=== PATIENT | female | born 1960 | race Caucasian/White ===

== ENCOUNTER 2016-08-15 08:04 | Emergency (ER) | payer BC ==
[2016-08-15 08:22] VITALS: BP 146/87
--- NOTE | 2016-08-15 08:33 | UC ---
Respiratory Complaint HPI - History of Current Complaint Chief Complaint: UCRespiratory Stated Complaint: SINUS COMPLAINT Time Seen by Provider: 08/15/16 08:25 Hx Obtained From: Patient Hx Last Menstrual Period: 1996 ?: No Onset/Duration: Sudden Onset, Lasting Days - 7, Still Present Severity Initially: Moderate Severity Currently: Moderate Character: Cough: Productive Aggravating Factors: Allergens - and smoking Alleviating Factors: Nothing Associated Signs And Symptoms: Positive: Chills, URI, Nasal Congestion, Hoarseness, Sinus Discomfort. Negative: Wheezing Related History: Seasonal Allergies - Risk Factors Pulmonary Embolism Risk Factors: Smoking Cardiac Risk Factors: Smoking Tuberculosis Risk Factors: Negative - Allergies/Home Medications Allergies/Adverse Reactions: Allergies Allergy/AdvReac Type Severity Reaction Status Date / Time Povidone Iodine Allergy Intermediate Rash Verified 08/15/16 08:17 [From Betadine] Morphine AdvReac Mild Nausea Verified 08/15/16 08:17 novacaine Allergy Severe local Uncoded 02/09/15 17:11 reaction seasonal Allergy Eyes Uncoded 03/10/16 20:36 Itchy/Swollen/Red/Watery PMH/Surg Hx/FS Hx/Imm Hx Endocrine History Of: Denies: Diabetes Cardiovascular History Of: Denies: Hypertension, Pacemaker/ICD, Congestive Heart Failure Respiratory History Of: Denies: Asthma GI/ History Of: Denies: Renal Disease Cancer History Of: Reports: Colorectal Cancer - Surgical History Surgical History: Yes Surgery Procedure, Year, and Place: COLON RESECTION REMOVING TUMOR 05/2011 [facility]. ILIOSTOMY 07/2011 [facility]. CYSTOSCOPY SPRING 2013-REMOVAL OF "RADIATION" TUMOR - Family History Known Family History: Positive: Cardiac Disease, Hypertension, Diabetes, Other - COLON CA - Social History Occupation: Employed Full-time Lives: Alone Alcohol Use: Rare Substance Use Type: None Smoking Status (MU): Light Every Day Tobacco Smoker Type: Cigarettes Amount Used/How Often: 4 CIGS PER DAY Length of Time of Smoking/Using Tobacco: ~ 40 Have You Smoked in the Last Year: Yes Household Exposure Type: Cigarettes Cessation Counseling: Patient Advised to Stop Review of Systems Constitutional: Fever, Chills ENT: Sore Throat, Nasal Discharge Respiratory: Cough Neurological: Headache - sinus, All Other Systems Reviewed And Are Negative: Yes Physical Exam Triage Information Reviewed: Yes Appearance: No Pain Distress, Well-Nourished, Ill-Appearing - mild Vital Signs: Initial Vital Signs Temp 98.4 F 08/15/16 08:10 Pulse 75 08/15/16 08:10 Resp 14 08/15/16 08:10 BP 146/87 08/15/16 08:10 Pulse Ox 99 08/15/16 08:10 Vital Signs Reviewed: Yes Eyes: Positive: Conjunctiva Inflamed - mild OU ENT: Positive: Pharyngeal erythema, TMs normal Neck exam: Normal Respiratory: Positive: Lungs clear. Negative: Wheezing Cardiovascular: Positive: RRR. Negative: No Murmur Musculoskeletal Exam: Normal Neurological Exam: Normal Psychological Exam: Normal Skin Exam: Normal UC Diagnostic Evaluation - Laboratory O2 Sat by Pulse Oximetry: 99 Respiratory Course/Dx - Differential Dx/Diagnosis Differential Diagnosis/HQI/PQRI: Asthma, Lower Resp Infection, Sinusitis Provider Diagnoses: Acute URI. Acute sinusitis. Nicotine use, cigarettes. Discharge - Discharge Plan Condition: Stable Disposition: HOME Prescriptions: Sulfamethox/Trimethoprim DS* [Bactrim DS 800/160 TAB*] 1 tab PO BID #20 tab Patient Education Materials: Upper Respiratory Infection (ED), Sinusitis (ED), Sulfamethoxazole/Trimethoprim (By mouth) Additional Instructions: [facility] SINUS RINSE: CHECK OUT AT [facility] Saline nasal wash helps with mucous, allergies and congestion. It can be used up to twice a day or only as needed. Use lukewarm tap water. It does not have to be sterilized or distilled water. Do 1/3 on each side and snort out of both nostrils. Repeat the process with 1/6 of the bottle on each side with snorting in between to finish the solution in the bottle Smoking Cessation Tricks. 1. Cut down by 1 cigarette per day every 2-3 days. Write the number of smokes for that day on the calendar. 2. Identify triggers to smoking: after meals, on the phone, in the car, with coffee, on breaks at work, etc. 3. Formulate a plan with a behavior to replace the smoking. Fireballs in the car , doodle pad on the phone, flavored creamer for the coffee, go for a walk after a meal or on break at work. 4. For stress smokes do deep breathing relaxation. Breath deep in through the nose hold the breath in for a few seconds then breath out slowly through the mouth.
== END 2016-08-15 08:45 | disposition home or self-care (01) ==
LOC: UCCORT 08:04
DX: J06.9 Acute upper respiratory infection, unspecified (principal); J01.90 Acute sinusitis, unspecified; Z85.038 Personal history of other malignant neoplasm of large intestine; Z88.4 Allergy status to anesthetic agent; Z88.5 Allergy status to narcotic agent; F17.210 Nicotine dependence, cigarettes, uncomplicated
CPT/HCPCS: 99212; G0463

== ENCOUNTER 2017-12-23 07:02 | Emergency (ER) | payer BC ==
[2017-12-23 07:25] VITALS: BP 140/70
--- NOTE | 2017-12-23 07:42 | UC ---
Back Pain HPI - HPI Summary HPI Summary: lower back pain x 2 days concern about possible UTI no dysuria , no frequency , no fever, no chills, no flank pain no known injury , pain is worse with movement, better, with rest, - History of Current Complaint Chief Complaint: UCGU Stated Complaint: URINARY COMPLAINT Time Seen by Provider: 12/23/17 07:19 Hx Obtained From: Patient Hx Last Menstrual Period: 1996 Onset/Duration: Gradual Onset, Lasting Days - 2, Still Present Timing: Constant Severity Initially: Moderate Severity Currently: Moderate Pain Intensity: 2 Back Pain: Is Discrete @ - lower back Character: Aching Aggravating Factor(s): Movement Alleviating Factor(s): Rest Associated Signs And Symptoms: Negative: Swelling, Redness, Bruising, Fever, Weakness, Numbness, Tingling, Abdominal Pain, Flank Pain, Bladder Incontinence, Bowel Incontinence, Weight Loss, Pain with Weight Bearing - Allergies/Home Medications Allergies/Adverse Reactions: Allergies Allergy/AdvReac Type Severity Reaction Status Date / Time MS Povidone Iodine Allergy Intermediate Rash Verified 08/15/16 08:17 [From Betadine] MS Morphine [Morphine] AdvReac Mild Nausea Verified 08/15/16 08:17 seasonal Allergy Eyes Uncoded 03/10/16 20:36 Itchy/Swollen/Red/Watery PMH/Surg Hx/FS Hx/Imm Hx - Additional Past Medical History Additional PMH: colon ca - Surgical History Surgical History: Yes Surgery Procedure, Year, and Place: COLON RESECTION REMOVING TUMOR 05/2011 [facility]. ILIOSTOMY 07/2011 [facility]. CYSTOSCOPY SPRING 2013-REMOVAL OF "RADIATION" TUMOR - Family History Known Family History: Positive: Cardiac Disease, Hypertension, Diabetes, Other - COLON CA - Social History Alcohol Use: Occasionally Substance Use Type: None Smoking Status (MU): Former Smoker Type: Cigarettes Amount Used/How Often: 4 CIGS PER DAY Length of Time of Smoking/Using Tobacco: ~ 40 Have You Smoked in the Last Year: Yes Household Exposure Type: Cigarettes Review of Systems Constitutional: Negative Skin: Negative Eyes: Negative ENT: Negative Respiratory: Negative Cardiovascular: Negative Gastrointestinal: Negative Genitourinary: Negative Is Patient Immunocompromised?: No All Other Systems Reviewed And Are Negative: Yes Physical Exam Triage Information Reviewed: Yes Appearance: Well-Appearing, No Pain Distress, Well-Nourished Vital Signs: Initial Vital Signs Temp 98.4 F 12/23/17 07:18 Pulse 66 12/23/17 07:18 Resp 20 12/23/17 07:18 BP 140/70 12/23/17 07:18 Pulse Ox 96 12/23/17 07:18 Vital Signs Reviewed: Yes Eye Exam: Normal Eyes: Positive: Conjunctiva Clear ENT: Positive: Normal ENT inspection, Hearing grossly normal, Pharynx normal Neck: Positive: Supple, Nontender, No Lymphadenopathy Respiratory: Positive: Chest non-tender, Lungs clear, Normal breath sounds Cardiovascular: Positive: RRR, No Murmur, Pulses Normal Abdomen Description: Positive: Nontender, No Organomegaly, Soft Musculoskeletal Exam: Normal Musculoskeletal: Positive: Strength Intact, ROM Intact, No Edema, Other: - lower back : no swelling, no erythe, no tenderness, normal ROM on flexion and extension Neurological: Positive: Alert, Muscle Tone Normal, Fatigued Skin Exam: Normal Back Pain Course/Dx - Differential Dx/Diagnosis Provider Diagnoses: lower back strain Discharge - Sign-Out/Discharge Documenting (check all that apply): Patient Departure - Discharge Plan Condition: Stable Disposition: HOME Patient Education Materials: Low Back Strain (ED) Referrals: Moriah Aguayo MD [Primary Care Provider] - If Needed Additional Instructions: normal Urine analysis no UTI most likely lower back strain - Billing Disposition and Condition Condition: STABLE Disposition: Home
== END 2017-12-23 07:50 | disposition home or self-care (01) ==
LOC: UCCORT 07:02
DX: S39.012A Strain of muscle, fascia and tendon of lower back, initial encounter (principal); X58.XXXA Exposure to other specified factors, initial encounter; Y93.9 Activity, unspecified; Y92.9 Unspecified place or not applicable; Z85.038 Personal history of other malignant neoplasm of large intestine; Z88.5 Allergy status to narcotic agent; Z87.891 Personal history of nicotine dependence
CPT/HCPCS: 81003; 99211; G0463

== ENCOUNTER 2018-01-30 10:05 | Emergency (ER) | payer BC ==
[2018-01-30 11:50] VITALS: BP 129/72
--- NOTE | 2018-01-30 12:52 | UC ---
Head Injury HPI - HPI Summary HPI Summary: 57-year-old female with history of colon cancer presents with 1 day of right- sided epistaxis. Patient says that she had head trauma involving a door frame approximately 2 days prior, followed by right-sided forehead and nasal congestion and pain yesterday, which was then followed by nasal epistaxis on the right. Complains of persistent headache in the right. Denies any visual changes or neck pain. No weakness or numbness of upper or lower extremitIes - History Of Current Complaint Chief Complaint: UCHeadInjury Stated Complaint: HEADACHE,SINUS COMPLAINT Hx Last Menstrual Period: 1996 Pain Intensity: 3 - Allergies/Home Medications Allergies/Adverse Reactions: Allergies Allergy/AdvReac Type Severity Reaction Status Date / Time povidone-iodine Allergy Intermediate Rash Verified 01/30/18 11:38 [From Betadine] morphine AdvReac Mild Nausea Verified 01/30/18 11:38 seasonal Allergy Eyes Uncoded 01/30/18 11:38 Itchy/Swollen/Red/Watery Home Medications: Home Medications NK [No Home Medications Reported] 01/30/18 [History Confirmed 01/30/18] PMH/Surg Hx/FS Hx/Imm Hx - Additional Past Medical History Additional PMH: Colon cancer Previously Healthy: Yes - Surgical History Surgical History: Yes Surgery Procedure, Year, and Place: COLON RESECTION REMOVING TUMOR 05/2011 [facility] [place]. ILIOSTOMY 07/2011 [facility]. CYSTOSCOPY SPRING 2013-REMOVAL OF "RADIATION" TUMOR - Family History Known Family History: Positive: Cardiac Disease, Hypertension, Diabetes, Other - COLON CA - Social History Alcohol Use: Rare Substance Use Type: None Smoking Status (MU): Former Smoker Type: Cigarettes Amount Used/How Often: 4 CIGS PER DAY Length of Time of Smoking/Using Tobacco: ~ 40 Have You Smoked in the Last Year: Yes Household Exposure Type: Cigarettes Review of Systems Constitutional: Negative Skin: Negative Eyes: Negative ENT: Epistaxis, Sinus Congestion, Sinus Pain/Tenderness Respiratory: Negative Cardiovascular: Negative Gastrointestinal: Negative Neurovascular: Negative Musculoskeletal: Negative All Other Systems Reviewed And Are Negative: Yes Physical Exam - Summary Physical Exam Summary: Gen: alert, in no acute distress HEENT: EOMI, normocephalic, atruamatic. Possible small wall abnormality on the lateral surface of the right nare. Maxillary tenderness on the right with small amount of bruising under the right eye Neck: supple, no masses CV: Normal s1 s2, no murmurs Resp: normal breath sounds b/l GI: no tenderness, no masses Musculoskeletal: normal ROM all 4 extremities Neuro: no obvious focal neurological deficits Skin: no rash Lymph: no lymphadenopathy Psych: appropriate affect, oriented Triage Information Reviewed: Yes Vital Signs: Initial Vital Signs Temp 37.1 C 01/30/18 11:39 Pulse 59 01/30/18 11:39 Resp 16 01/30/18 11:39 BP 129/72 01/30/18 11:39 Pulse Ox 98 01/30/18 11:39 Head Injury Course/Dx - Course Course Of Treatment: After consideration of the patient's history and physical exam, context of epistaxis with right-sided bruising under the right eye in the area of the maxillary sinus is concerning for traumatic injury. I instructed The patient to report to the emergency department for further evaluation. Agrees to and understands instructions. I spoke with provider at [facility] [facility] regarding the patient's case. - Differential Dx/Diagnosis Provider Diagnoses: head injury, epistaxis Discharge - Sign-Out/Discharge Documenting (check all that apply): Patient Departure All imaging exams completed and their final reports reviewed: No Studies - Discharge Plan Condition: Stable Disposition: HOME-RECOMMEND TO ED Patient Education Materials: Nosebleed (ED), Head Injury (ED) Referrals: Moriah Aguayo MD [Primary Care Provider] - Additional Instructions: PLEASE GO STRAIGHT TO [facility] - Billing Disposition and Condition Condition: STABLE Disposition: Home-Recommend to ED
== END 2018-01-30 12:59 | disposition home health service (06) ==
LOC: UCCORT 10:05
DX: S09.90XA Unspecified injury of head, initial encounter (principal); W22.8XXA Striking against or struck by other objects, initial encounter; Y93.9 Activity, unspecified; Y92.9 Unspecified place or not applicable; R04.0 Epistaxis; Z88.5 Allergy status to narcotic agent; Z87.891 Personal history of nicotine dependence; Z85.038 Personal history of other malignant neoplasm of large intestine
CPT/HCPCS: 99212; G0463

== ENCOUNTER 2018-08-13 09:15 | Emergency (ER) | payer BC ==
--- OUTSIDE RECORDS SUMMARY | 2018-08-13 09:31 | XMS REPORT | Continuity of Care Document ---
:1960 External Reference #:[id number] Author Name Brittany Roberts O.D. Address [address] [place] [address] Care Team Providers Name Role Phone Jonna Porter M.D. 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 Active Onset: 07/20/2018 Regular astigmatism Brittany Roberts O.D. Active Onset: 07/20/2018 Hypermetropia Brittany Roberts O.D. 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 ETOH Use Occasionally consumes alcohol Tobacco Use Start: Unknown End: Patient is a former smoker Unknown Recreational Drug Use Denies Drug Use Smoking Status Reviewed: 07/20/18 Patient is a former smoker Allergies, Adverse Reactions, Alerts Description No Known Drug Allergies Medications Medication Date Status Form Strength Qnty SIG Indications Ordering Provider Restasis 07/19/19 Active Emulsion 0.05% 180units 1 drops Brittany Keenan both eyes Kojo Roberts twice a day Claritin Active Capsules 10mg 1 per day Unknown 00 Immunizations Description No Information Available Vital Signs Description No Information Available Results Description No Information Available Procedures Description No Information Available Encounters Description No Information Available Plan of Treatment Future Appointment(s):07/21/2019 7:45 am - Brittany Roberts O.D. at [facility]/20/2018 - Brittany Roberts O.D.H04.123 Dry eye syndrome of bilateral lacrimal glandsComments:Both of your eyes appear to be dry. Use artificial tears as directed. You can use the tears more often if you are reading a book or are on the computer, as we tend to blink less, making our eyes dry out more.[facility] offers a few items in our optical department to help alleviate dry eye symptoms. CONTINUE RESTASIS TWICE A DAY BOTH EYESSTART ARTIFICIAL TEARS 3-4 TIMES A DAY BOTH EYESSTART GEL DROPS OR OINTMENT AT NIGHTFollow up:1 YEARH52.03 Hypermetropia, bilateralComments:You have Hyperopia, or far sightedness, I have given you a prescription for glasses.H52.223 Regular astigmatism, bilateralComments:Astigmatism is a common vision condition that happens when a person's cornea is not symmetrical. Dr. Roberts has given you a prescription to correct for this.H52.4 PresbyopiaComments :Smoking can increase the risk of developing or worsening any eye related disease, as well as affect your overall health. If you are a smoker, we strongly recommend that you quit.If you are not a smoker, we strongly recommend that you do not start. You have presbyopia. This is when the lens in your eye loses the ability to change focus, and happens as we age. A pair of reading glasses will help you see up close.
--- OUTSIDE RECORDS SUMMARY | 2018-08-13 09:31 | XMS REPORT | Continuity of Care Document ---
:1960 External Reference #:[id number] Author Name Han Cota Address [address] [place] [address] Care Team Providers Name Role Phone Jonna Porter M.D. Care Team Information Administrative Library Assistant Unavailable Jonna Porter M.D. 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 Tobacco Use Start: Unknown End: Former Cigarette Smoker quit 2016 Unknown ETOH Use Occasional Exercise Exercises regularly walks 3-5 miles a Type/Frequency day in warmer weather yoga Allergies, Adverse Reactions, Alerts Description No Known Drug Allergies Medications Medication Date Status Form Strength Qnty SIG Indications Ordering Provider Restasis 00// Active Emulsion 0.05% instill 1 drop Unknown 0000 two times daily in each eye approximately 12 hours apart Cetirizine 00/00/ Active Tablets 10mg 1 by mouth Unknown HCL 0000 every day Ibuprofen 00/00/ Active Tablets 200mg 2 by mouth Unknown 200 0000 every 12 hours as needed Immunizations Description No Information Available Vital Signs Date Vital Result Comment 07/18/2018 1:36pm BP Systolic 120 mmHg BP Diastolic 70 mmHg Heart Rate 60 /min Body Temperature 98.2 F Respiratory Rate 16 /min Height 60.5 inches 5'0.50" Weight 128.00 lb BMI (Body Mass Index) 24.6 kg/m2 Results Test Date Facility Test Result H/L Range Note Laboratory test 07/18/2018 [facility] ([facility]) Free T4 <pending> 0.75- 1.54 finding TSH <pending> 0.5-5.0 Procedures Date Code Description Status 05/10/2016 32070055 Mammogram Completed 05/10/2016 [id number] Colonoscopy Completed Encounters Description No Information Available Plan of Treatment Future Appointment(s):09/27/2018 1:00 pm - Jonna [facility] M[facility]D. at [facility]07/18/2018 - Aretha Major, Alysha-CR53.83 Other [id number] Dry eye syndrome of unspecified lacrimal uogovH26.31 Encounter for screening mammogram for malignant neoplasm of breastNew Xrays:Mammography Screening, Bilateral; 2- View Each Breast, Ordered: 07/18/18AllComments:~B_~U_Medication Management~b_~u _ Patient Understands medications she's taking? Yes No Are there Barriers to Adherence? Yes No Has the patient been asked about herbal supplements and therapies, and OTC meds? Yes No ~B_~U_Care Plan~b_ ~u_1. Patient has been queried about patient's goals/preferences and functional /lifestyle goals at relevant visits. If relevant, describe: na2. Treatment goals as explained to the patient: abovefurther eval of sxroutine health maintenance and disease prevention 3. Are there barriers to meeting treatment goals? Yes No If Yes, please describe:4. Self-Management goals as described to the patient: Yes No I will check some labsrefer to opthal for eye eval sched mammo suggest return for cpe request old records
[2018-08-13 09:39] VITALS: BP 152/74
--- NOTE | 2018-08-13 10:44 | UC ---
Back Pain HPI - HPI Summary HPI Summary: Pt c/o low back pain that began as intermittent and now pt c/o consistent dull ache. Pt has hx of colon cancer and had radiation to lower abdominal/back area. Pt states that she was told she has "radiation damage" to pelvic bones and was "worked up for" multiple myeloma in the past. Denies urinary symptoms of frequency, urgency or dysuria. - History of Current Complaint Chief Complaint: UCGU Stated Complaint: URINARY COMPLAINT Time Seen by Provider: 08/13/18 09:48 Hx Obtained From: Patient Hx Last Menstrual Period: 1996 ?: No Onset/Duration: Gradual Onset, Lasting Days, Still Present, Worse Since - onset Timing: Constant Severity Initially: Mild Severity Currently: Mild Pain Intensity: 3 Back Pain: Is Diffuse - low back Character: Dull, Aching Aggravating Factor(s): Movement Alleviating Factor(s): Nothing Associated Signs And Symptoms: Positive: Negative - Risk Factors AAA Risk Factors: Negative TAD Risk Factors: Negative Cauda Equina Risk Factors: Negative Epidural Abscess Risk Factors: Negative - Allergies/Home Medications Allergies/Adverse Reactions: Allergies Allergy/AdvReac Type Severity Reaction Status Date / Time povidone-iodine Allergy Intermediate Rash Verified 08/13/18 09:36 [From Betadine] morphine AdvReac Mild Nausea Verified 08/13/18 09:36 seasonal Allergy Eyes Uncoded 08/13/18 09:36 Itchy/Swollen/Red/Watery Home Medications: Home Medications Artificial Tears* 15 ML BTL [Polyvinyl Alcohol 1.4% OPTH*] 1 drop BOTH EYES QID 08/13/18 [History Confirmed 08/13/18] Cyclosporine 0.05% OPHTH (NF) [Restasis 0.05% OPHTH] 1 drop BOTH EYES BID [History Confirmed 08/13/18] PMH/Surg Hx/FS Hx/Imm Hx Previously Healthy: Yes Cancer History: Colorectal Cancer - Surgical History Surgical History: Yes Surgery Procedure, Year, and Place: COLON RESECTION REMOVING TUMOR 05/2011 [facility]. ILIOSTOMY 07/2011 [facility]. CYSTOSCOPY SPRING 2013-REMOVAL OF "RADIATION" TUMOR - Family History Known Family History: Positive: Cardiac Disease, Hypertension, Diabetes, Other - COLON CA - Social History Occupation: Retired Lives: With Family Alcohol Use: Rare Substance Use Type: None Smoking Status (MU): Former Smoker Type: Cigarettes Amount Used/How Often: 4 CIGS PER DAY Length of Time of Smoking/Using Tobacco: ~ 40 Have You Smoked in the Last Year: Yes Household Exposure Type: Cigarettes - Immunization History Vaccination Up to Date: Yes Review of Systems All Other Systems Reviewed And Are Negative: Yes Constitutional: Positive: Negative Skin: Positive: Negative Eyes: Positive: Negative ENT: Positive: Negative Respiratory: Positive: Negative Cardiovascular: Positive: Negative Gastrointestinal: Positive: Negative Genitourinary: Positive: Negative Motor: Positive: Negative Neurovascular: Positive: Negative Musculoskeletal: Positive: Arthralgia, Myalgia Neurological: Positive: Negative Psychological: Positive: Negative Is Patient Immunocompromised?: No Physical Exam Triage Information Reviewed: Yes Appearance: Well-Appearing Vital Signs: Initial Vital Signs Temp 98.8 F 08/13/18 09:37 Pulse 76 08/13/18 09:37 Resp 17 08/13/18 09:37 BP 152/74 08/13/18 09:37 Pulse Ox 97 08/13/18 09:37 Vital Signs Reviewed: Yes Eye Exam: Normal ENT Exam: Normal Dental Exam: Normal Neck exam: Normal Respiratory Exam: Normal Cardiovascular Exam: Normal Abdominal Exam: Normal Musculoskeletal Exam: Normal Neurological Exam: Normal Psychological Exam: Normal Skin Exam: Normal Diagnostics - Radiology No standard instances Radiology Interpretation Completed By: Radiologist - IMPRESSION: 1. Mild degenerative changes similar in appearance to the prior CT of the abdomen and pelvis. 2. Air-filled loops of small bowel measure up to 3 cm in diameter. Please correlate to signs or symptoms of partial small bowel obstruction. 3. Incidentally noted is calcified atherosclerosis of the visualized iliofemoral arteries. Please correlate to any signs or symptoms of arterial insufficiency. Back Pain Course/Dx - Differential Dx/Diagnosis Differential Diagnosis/HQI/PQRI: Herniated Disc, Strain, Sprain Provider Diagnosis: Low back pain Discharge - Sign-Out/Discharge Documenting (check all that apply): Patient Departure All imaging exams completed and their final reports reviewed: Yes - Discharge Plan Condition: Stable Disposition: HOME Patient Education Materials: Arthralgia (ED), Back Pain (ED), Lower Back Exercises (ED) Referrals: Jonna Porter MD [Primary Care Provider] - As Soon As Possible - Billing Disposition and Condition Condition: STABLE Disposition: Home - Attestation Statements Provider Attestation: I was available for consult. This patient was seen by the BLAKE. The patient was not presented to, seen by, or examined by me. EK
== END 2018-08-13 11:20 | disposition home or self-care (01) ==
LOC: UCCORT 09:15
DX: M54.5 Low back pain (principal); Z85.820 Personal history of malignant melanoma of skin; Z85.038 Personal history of other malignant neoplasm of large intestine; Z88.8 Allergy status to other drugs, medicaments and biological substances; Z88.5 Allergy status to narcotic agent; Z91.09 Other allergy status, other than to drugs and biological substances; Z87.891 Personal history of nicotine dependence
CPT/HCPCS: 72190; 81003; 99211; G0463

== ENCOUNTER 2018-11-16 17:05 | Emergency (ER) | payer BC ==
[2018-11-16 17:21] VITALS: BP 187/100
--- OUTSIDE RECORDS SUMMARY | 2018-11-16 17:28 | XMS REPORT | Continuity of Care Document ---
:1960 External Reference #:[id number] Author Name Griselda Jennifer Care Team Providers Name Role Phone Jonna Porter MD Primary Care Physician Unavailable Payers Date Identification Numbers Payment Provider Subscriber Effective: 2013 Policy Number: [id number] BS Yuliana Simons PayID: [id number] [address] [address] [place] [address] Expires: 2013 Policy Number: [id number] BS Of ELPIDIO Simons PayID: [id number] [address] [address] [place] [address] Family History Date Family Member(s) Observation Comments General Heart Disease General Diabetes Type II General Cancer Social History Type Date Description Comments Sex Unknown Lives With Alone 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 ETOH Use Drinks Alcoholic Beverages Occasionally Tobacco Use Start: Unknown End: Patient is a former smoker 4-5 cigs qd Unknown Smoking Status Reviewed: 11/03/18 Patient is a former smoker 4-5 cigs qd Exercise Type/Frequency Exercises regularly Allergies, Adverse Reactions, Alerts Active Allergies Reaction Severity Comments Date Betadine 08/27/2014 Medications Active Medications SIG Qnty Indications Ordering Provider Date Omeprazole 1 by mouth every Unknown 20mg Capsules DR day Claritin 1 by mouth every Unknown 10mg Capsules day Restasis 1 drop both eyes Unknown 0.05% Emulsion twice a day History Medications Suprep Bowel Prep Kit take according to 354ml Sandip Caldwell 09/30/2018 - the instructions MD Robert 11/03/2018 17.5-3.13-1.6GM/177ML you received, the Solution afternoon before and morning of your procedure. Keflex 1 by mouth four Unknown - 500mg Capsules times a day 11/03/2018 Vital Signs Date Vital Result Comment 11/03/2018 4:45pm Height 61 inches 5'1" Weight 129.00 lb Heart Rate 68 /min BP Systolic 109 mmHg BP Diastolic 76 mmHg O2 % BldC Oximetry 94 % BMI (Body Mass Index) 24.4 kg/m2 08/27/2014 4:08pm Height 61 inches 5'1" Weight 120.00 lb Heart Rate 70 /min BP Systolic Sitting 118 mmHg BP Diastolic Sitting 73 mmHg Pain Level 6 BMI (Body Mass Index) 22.7 kg/m2 Results Test Date Facility Test Result H/L Range Note Laboratory test 10/19/2018 [facility] Surgical SEE RESULT 1 , [address] [place] [address] [phone] Laboratory test 08/27/2014 [facility] Lyme Disease Negative N Negative [address] [place] [address] [phone] 1 [id number] 2 SEE RESULT BELOW Name: RICHARD SIMONS Carlos : [address]: Sandip Jones MD Acct: [id number] Unit: [id number] AGE: 58 Location: ENDOCEC Re10/19/18 SEX: F Status: DEP REF SPEC: [id number] SADE: 10/19/180935 [facility] DR: Sandip Jones MD REQ: [id number] RECD: 10/19/18 STATUS: DEEPAK TINAJERO DR: Jonna Porter MD _ ORDERED: LEVEL 4/2 COMMENTS: [id number] FINAL DIAGNOSIS 1. Colon, distal right, biopsy: -- Tubular adenoma. -- No high grade dysplasia or malignancy. 2. Colon, hepatic flexure, biopsy: -- Tubular adenoma. -- No high grade dysplasia or malignancy. CLINICAL HISTORY Screening/Surveillance for malignancy in asymptomatic patient; diet - good; weight up; usual bowel habits - every eight hours POST-OPERATIVE DIAGNOSIS Colonoscopy: to cecum with ease; anastomosis at 12; 2 polyps; conclusions: status post colectomy; polyps GROSS DESCRIPTION 1. The specimen is received in formalin labeled, Distal Right Colon Polyp, and consists of a 0.3 x 0.2 x 0.1 cm aggregate of villegas irregular soft tissue fragments admixed with scant organic debris. Entirely submitted, one cassette. 2. The specimen is received in formalin labeled, Biopsy Hepatic Flexure Polyp, and CONTINUED ON NEXT PAGE DEPARTMENT OF PATHOLOGY, [address] [place] [address] Heraclio Abdul M.D. Director [facility] # [id number] RUN DATE: 10/20/18 [facility] LAB LIVE PAGE 2 Patient: RICHARD SIMONS [id number] (Continued) GROSS DESCRIPTION (Continued) consists of a 0.9 by up to 0.3 x 0.2 cm villegas irregular to polypoid soft tissue fragment which is submitted entirely in one cassette. Signed by and Reported on: Heraclio Abdul MD 1412 END OF REPORT DEPARTMENT OF PATHOLOGY, [address] [place] [address] Heraclio Abdul M.D. Director [facility] # [id number] 3 Serologic response to B. burgdorferi infection is not detected, but cannot rule out early infection during which low or undetectable antibody levels to B. burgdorferi may be present. If clinically indicated, a new serum specimen should be submitted in 7-14 days. Test Performed by: [place] [address] Hospitalist Nocturnist Physician: Jayant Orellana II, M.D., Ph.D. Procedures Date Code Description Status 10/19/2018 84729 Colonoscopy Flexible Remove Tumor/Polyp/Lesion Snare Completed Technique 10/19/2018 [id number] Colonoscopy Completed 05/05/2011 78887 EKG, Interpretation Only Completed Encounters Type Date Location Provider Dx Diagnosis Office Visit 08/27/2014 [facility] Ginny Jara, 719.44 Pain Joint Hand 3:45p Of [facility]
== END 2018-11-16 19:01 | disposition left against medical advice (07) ==
LOC: ED 17:05
DX: R51 Headache (principal); R04.0 Epistaxis; Z53.21 Procedure and treatment not carried out due to patient leaving prior to being seen by health care provider

== ENCOUNTER 2019-04-07 07:57 | Emergency (ER) | payer BC ==
[2019-04-07 08:14] VITALS: BP 130/77
--- NOTE | 2019-04-07 08:41 | UC ---
Complaint Female HPI - HPI Summary HPI Summary: 58-year-old woman comes in with a chief complaint of burning with urination and increased urinary frequency and hematuria since last evening. Patient drank a lot of water which decreased the symptoms some. No fevers or chills. Does have some suprapubic discomfort and right flank discomfort. No change in bowel. - History Of Current Complaint Chief Complaint: UCGU Stated Complaint: UTI SYMPTOMS Time Seen by Provider: 04/07/19 08:12 Hx Last Menstrual Period: 1996 Pain Intensity: 5 - Allergies/Home Medications Allergies/Adverse Reactions: Allergies Allergy/AdvReac Type Severity Reaction Status Date / Time povidone-iodine AdvReac Intermediate Rash Verified 04/07/19 08:15 [From Betadine] morphine AdvReac Mild Nausea Verified 04/07/19 08:14 seasonal Allergy Eyes Uncoded 04/07/19 08:14 Itchy/Swollen/Red/Watery PMH/Surg Hx/FS Hx/Imm Hx Previously Healthy: Yes GI/ History: Gastroesophageal Reflux - Surgical History Surgical History: Yes Surgery Procedure, Year, and Place: COLON RESECTION REMOVING TUMOR 05/2011 [facility]. ILIOSTOMY 07/2011 REVERSAL [facility]. CYSTOSCOPY SPRING 2013-REMOVAL OF "RADIATION" TUMOR - Family History Known Family History: Positive: Cardiac Disease, Hypertension, Diabetes, Other - COLON CA - Social History Alcohol Use: Rare Substance Use Type: None Smoking Status (MU): Former Smoker Type: Cigarettes Amount Used/How Often: 4 CIGS PER DAY Length of Time of Smoking/Using Tobacco: ~ 40 Have You Smoked in the Last Year: Yes Household Exposure Type: Cigarettes - Immunization History Vaccination Up to Date: Yes Review of Systems All Other Systems Reviewed And Are Negative: Yes Constitutional: Positive: Negative Skin: Positive: Negative Eyes: Positive: Negative ENT: Positive: Negative Respiratory: Positive: Negative Cardiovascular: Positive: Negative Gastrointestinal: Positive: Other - SEE HPI Genitourinary: Positive: Dysuria, Hematuria, Frequency, Urgency Motor: Positive: Negative Neurovascular: Positive: Negative Musculoskeletal: Positive: Negative Neurological: Positive: Negative Psychological: Positive: Negative Is Patient Immunocompromised?: No Physical Exam Triage Information Reviewed: Yes Appearance: Well-Appearing, No Pain Distress, Well-Nourished Vital Signs: Initial Vital Signs Temp 99.1 F 04/07/19 08:11 Pulse 79 04/07/19 08:11 Resp 18 04/07/19 08:11 BP 130/77 04/07/19 08:11 Pulse Ox 97 04/07/19 08:11 Vital Signs Reviewed: Yes Eye Exam: Normal Eyes: Positive: Conjunctiva Clear Neck: Positive: Supple Respiratory: Positive: Lungs clear, Normal breath sounds, No respiratory distress Cardiovascular: Positive: RRR Abdomen Description: Positive: CVA Tenderness (R) Musculoskeletal: Positive: Strength Intact, ROM Intact Neurological: Positive: Alert, Muscle Tone Normal Psychological: Positive: Age Appropriate Behavior Skin Exam: Normal Complaint Female Dx - Differential Dx/Diagnosis Provider Diagnosis: UTI (urinary tract infection) Discharge ED - Sign-Out/Discharge Documenting (check all that apply): Patient Departure All imaging exams completed and their final reports reviewed: No Studies - Discharge Plan Condition: Stable Disposition: HOME Prescriptions: Nitrofurantoin Monohyd/M-Cryst [Macrobid 100 mg Capsule] 100 mg PO BID #14 cap Phenazopyridine TAB* [Pyridium 100 mg TAB*] 100 mg PO TID PRN #6 tab PRN Reason: Pain - Moderate Patient Education Materials: Urinary Tract Infection in Women (ED) Referrals: Jonna Porter MD [Primary Care Provider] - Additional Instructions: FOLLOW UP WITH YOUR DOCTOR IF NOT COMPLETELY IMPROVED. GET REEVALUATED SOONER IF NOT IMPROVING OR WORSE; PAIN, FEVER, YOU FEEL ILL OR ANY QUESTIONS OR CONCERNS. - Billing Disposition and Condition Condition: STABLE Disposition: Home
== END 2019-04-07 08:46 | disposition home or self-care (01) ==
LOC: UCCORT 07:57
DX: N39.0 Urinary tract infection, site not specified (principal); R31.9 Hematuria, unspecified; Z88.8 Allergy status to other drugs, medicaments and biological substances; Z88.5 Allergy status to narcotic agent; Z91.09 Other allergy status, other than to drugs and biological substances; Z87.891 Personal history of nicotine dependence
CPT/HCPCS: 81003; 87086; 99212; G0463